=== PATIENT | male | born 1985 | race Two or more races ===

== ENCOUNTER 2021-07-26 19:46 | Emergency (ER) | payer OTHER ==
[~2021-07-26] VITALS: Ht 182.9 cm; Wt 147.4 kg
[2021-07-26] MEDS ORDERED: CRESTOR10 MG PO (20:15)
[2021-07-26] MEDS ORDERED: OMEGA 3 1,0001 EACH (20:15)
[2021-07-26] MEDS ORDERED: TRILIPIX45 MG PO (20:15)
== END 2021-07-26 23:16 | disposition home or self-care (01) ==
LOC: ER 19:46
DX: R10.9 Unspecified abdominal pain (principal)